=== PATIENT | female | born 1995 | race Two or more races ===

== ENCOUNTER 2019-05-05 07:41 | Emergency (ER) | payer OTHER ==
[~2019-05-05] VITALS: Ht 154.9 cm; Wt 96.2 kg
[2019-05-05 08:28] LABS: Urine Bacteria NONE SEEN /hpf (None Seen); Urine Blood TRACE /uL (Negative); Urine Mucus FEW (None Seen); Urine Specific Gravity 1.026 (1.001-1.035); Urine WBC 4 /hpf (0 - 5)
[2019-05-05 09:39] VITALS: BP 114/71
[2019-05-05 10:33] LABS: Basophils # (auto) 0 uL; Basophils % (auto) 0.4 % (0.0-2.0); Eosinophils # (auto) 0.1 uL; Eosinophils % (auto) 0.8 % (0.0-7.0); Hematocrit 42.5 % (36.0-46.0); Hemoglobin 14.4 g/dL (12.2-16.2); Lymphocytes # (auto) 2.9 uL; Lymphocytes % (auto) 24.8 % (10.0-50.0); Mean Corpuscular Hemoglobin 30.3 pg (28.0-32.0); Mean Corpuscular Hgb Conc. 33.9 g/dL (32.0-36.0); Mean Corpuscular Volume 89.4 fL (80.0-100.0); Monocytes # (auto) 0.5 uL; Monocytes % (auto) 4.6 % (0.0-12.0); Neutrophils % (auto) 69.4 % (37.0-80.0); Nucleated Red Blood Cells % 0.1 %; Platelet Count (auto) 319 10^3/uL (140-450); Red Blood Cells 4.76 10^6/uL (4.0-5.20); Red Cell Distribution Width 13.9 % (11.8-14.3); White Blood Cell 11.5 10^3/uL (4.4-10.8)
== END 2019-05-05 10:50 | disposition home or self-care (01) ==
LOC: ER 07:41
DX: N39.0 Urinary tract infection, site not specified (principal); R51 Headache; R42 Dizziness and giddiness; F17.210 Nicotine dependence, cigarettes, uncomplicated
CPT/HCPCS: 36415; 81001; 81025; 82962; 85025; 93005

== ENCOUNTER 2020-03-25 14:29 | Emergency (ER) | payer OTHER ==
[~2020-03-25] VITALS: Ht 154.9 cm; Wt 97.5 kg
[2020-03-25 14:35] VITALS: BP 109/61
== END 2020-03-25 16:04 | disposition home or self-care (01) ==
LOC: ER 14:29
DX: S63.91XA Sprain of unspecified part of right wrist and hand, initial encounter (principal); H10.9 Unspecified conjunctivitis; W22.01XA Walked into wall, initial encounter; Y93.89 Activity, other specified; Y92.89 Other specified places as the place of occurrence of the external cause; Y99.8 Other external cause status
CPT/HCPCS: 73130

== ENCOUNTER 2021-10-12 09:05 | Emergency (ER) | payer OTHER ==
[~2021-10-12] VITALS: Ht 154.9 cm; Wt 99.8 kg
[2021-10-12] MEDS ORDERED: KETOROLAC TROMETH 30 MG/ML 1ML VIAL IV ONE (09:30)
[2021-10-12] MEDS ORDERED: ONDANSETRON HCL 4 MG/2 ML VIAL IV ONE (09:30)
[2021-10-12 10:16] LABS: Basophils # (auto) 0.1 10 ^3/uL (0-0.2); Basophils % (auto) 0.6 % (0.0-2.0); Eosinophils # (auto) 0.1 10 ^3/uL (0-0.8); Eosinophils % (auto) 1.1 % (0.0-7.0); Hematocrit 38.9 % (36.0-46.0); Hemoglobin 13.3 g/dL (12.2-16.2); Lymphocytes # (auto) 2.8 10 ^3/uL (0.4-5.4); Mean Corpuscular Hemoglobin 30.8 pg (28.0-32.0); Mean Corpuscular Hgb Conc. 34.2 g/dL (32.0-36.0); Mean Corpuscular Volume 90.1 fL (80.0-100.0); Monocytes # (auto) 0.5 10 ^3/uL (0-1.3); Monocytes % (auto) 4.7 % (0.0-12.0); Neutrophils % (auto) 69.6 % (37.0-80.0); Red Blood Cells 4.32 10^6/uL (4.0-5.20); Red Cell Distribution Width 13.3 % (11.8-14.3); White Blood Cell 11.5 10^3/uL (4.4-10.8)
[2021-10-12 10:28] LABS: Albumin 3.3 g/dL (3.4-5.0); Calcium 8.4 mg/dL (8.5-10.1)
[2021-10-12 10:33] LABS: BUN/Creatinine Ratio 18.9; Bilirubin, Total 0.7 mg/dL (0.2-1.0)
[2021-10-12 12:14] LABS: Urine Bacteria NONE SEEN /hpf (None Seen); Urine Blood Negative /uL (Negative); Urine Mucus FEW (None Seen); Urine Specific Gravity 1.029 (1.001-1.035); Urine WBC 5 /hpf (0 - 5)
[2021-10-12 12:49] VITALS: BP 108/48
== END 2021-10-12 12:47 | disposition home or self-care (01) ==
LOC: ER 09:05
DX: R11.2 Nausea with vomiting, unspecified (principal); R10.30 Lower abdominal pain, unspecified; F17.210 Nicotine dependence, cigarettes, uncomplicated
CPT/HCPCS: 36415; 80053; 81001; 83690; 85025; 96374; 96375; 99284; J1885; J2405

== ENCOUNTER 2021-11-11 15:13 | Emergency (ER) | payer OTHER ==
[~2021-11-11] VITALS: Ht 154.9 cm; Wt 100.7 kg
[2021-11-11] MEDS ORDERED: PROMETHAZINE HCL 25 MG/ML 1ML IM ONE (16:00)
[2021-11-11] MEDS ORDERED: SODIUM CHLORIDE 0.9% 1,000 ML IV ONE (16:00)
[2021-11-11 16:39] LABS: Basophils # (auto) 0 10 ^3/uL (0-0.2); Basophils % (auto) 0.3 % (0.0-2.0); Eosinophils # (auto) 0.1 10 ^3/uL (0-0.8); Eosinophils % (auto) 0.5 % (0.0-7.0); Hematocrit 38.8 % (36.0-46.0); Lymphocytes # (auto) 2.3 10 ^3/uL (0.4-5.4); Lymphocytes % (auto) 19.4 % (10.0-50.0); Mean Corpuscular Hemoglobin 30.4 pg (28.0-32.0); Mean Corpuscular Hgb Conc. 33.5 g/dL (32.0-36.0); Mean Corpuscular Volume 90.6 fL (80.0-100.0); Monocytes # (auto) 0.5 10 ^3/uL (0-1.3); Monocytes % (auto) 4.2 % (0.0-12.0); Neutrophils % (auto) 75.6 % (37.0-80.0); Nucleated Red Blood Cells % 0.3 %; Red Blood Cells 4.28 10^6/uL (4.0-5.20); Red Cell Distribution Width 13.3 % (11.8-14.3); White Blood Cell 11.9 10^3/uL (4.4-10.8)
[2021-11-11 16:54] LABS: Albumin 3.1 g/dL (3.4-5.0); Calcium 8.7 mg/dL (8.5-10.1); Potassium 3.7 mmol/L (3.5-5.1)
[2021-11-11 16:57] LABS: BUN/Creatinine Ratio 15.2; Bilirubin, Total 0.5 mg/dL (0.2-1.0); Total Protein 7.2 g/dL (6.4-8.2)
[2021-11-11 23:20] VITALS: BP 110/78
== END 2021-11-11 23:20 | disposition home or self-care (01) ==
LOC: ER 15:27
DX: O21.0 Mild hyperemesis gravidarum (principal); Z3A.25 25 weeks gestation of pregnancy
CPT/HCPCS: 36415; 80053; 85025; 96360; 96361; 96372; 99283; J2550; J7030

== ENCOUNTER 2022-10-15 00:55 | Emergency (ER) | payer MEDICAID, OTHER ==
[~2022-10-15] VITALS: Ht 167.6 cm; Wt 80.0 kg
[2022-10-15 01:01] VITALS: BP 124/82
[2022-10-15 01:34] LABS: Basophils # (auto) 0.1 10 ^3/uL (0-0.2); Basophils % (auto) 0.6 % (0.0-2.0); Eosinophils # (auto) 0.1 10 ^3/uL (0-0.8); Eosinophils % (auto) 0.9 % (0.0-7.0); Hematocrit 40.1 % (36.0-46.0); Hemoglobin 13.9 g/dL (12.2-16.2); Lymphocytes # (auto) 3.9 10 ^3/uL (0.4-5.4); Lymphocytes % (auto) 26.4 % (10.0-50.0); Mean Corpuscular Hemoglobin 30.3 pg (28.0-32.0); Mean Corpuscular Hgb Conc. 34.6 g/dL (32.0-36.0); Mean Corpuscular Volume 87.6 fL (80.0-100.0); Monocytes # (auto) 0.7 10 ^3/uL (0-1.3); Monocytes % (auto) 4.5 % (0.0-12.0); Neutrophils # (auto) 10.1 10 ^3/uL (1.6-8.6); Neutrophils % (auto) 67.6 % (37.0-80.0); Red Blood Cells 4.58 10^6/uL (4.0-5.20); Red Cell Distribution Width 14.8 % (11.8-14.3); White Blood Cell 14.9 10^3/uL (4.4-10.8)
[2022-10-15] MEDS ORDERED: HYDROcodone-ACET 10/325MG TAB PO ONE (01:45)
[2022-10-15] MEDS ORDERED: SODIUM CHLORIDE 0.9% 1,000 ML IV ONE ×2 (02:00)
[2022-10-15 02:03] LABS: Albumin 3.7 g/dL (3.4-5.0); BUN/Creatinine Ratio 21.1; Calcium 8.9 mg/dL (8.5-10.1); Potassium 3.9 mmol/L (3.5-5.1)
[2022-10-15 02:06] LABS: Bilirubin, Total 0.5 mg/dL (0.2-1.0); Total Protein 7.7 g/dL (6.4-8.2)
== END 2022-10-15 03:46 | disposition left against medical advice (07) ==
LOC: ER 00:55 → EDBD 00:55 → ER 03:46
DX: R10.9 Unspecified abdominal pain (principal); F32.A Depression, unspecified; F17.210 Nicotine dependence, cigarettes, uncomplicated; R11.2 Nausea with vomiting, unspecified; R07.81 Pleurodynia
CPT/HCPCS: 36415; 80053; 83690; 84702; 85025

== ENCOUNTER 2023-01-21 19:06 | Emergency (ER) | payer MEDICAID ==
[~2023-01-21] VITALS: Ht 154.9 cm; Wt 216.0 kg
[2023-01-21 21:55] VITALS: BP 115/60
[2023-01-21] MEDS ORDERED: ACET-1158 PO (22:48)
[2023-01-21] MEDS ORDERED: AMOX-277 PO (22:48)
== END 2023-01-21 22:52 | disposition home or self-care (01) ==
LOC: ER 19:06
DX: L60.0 Ingrowing nail (principal); Z79.2 Long term (current) use of antibiotics; Z79.899 Other long term (current) drug therapy

== ENCOUNTER 2023-06-28 18:38 | Emergency (ER) | payer MEDICAID ==
[~2023-06-28] VITALS: Ht 154.9 cm; Wt 102.8 kg
[~2023-06-28 18:38] MED LIST: ACET500T58 PO; AMOX875T4 PO
[2023-06-28 20:11] LABS: Basophils # (auto) 0.1 10 ^3/uL (0-0.2); Basophils % (auto) 0.5 % (0.0-2.0); Eosinophils # (auto) 0.1 10 ^3/uL (0-0.8); Eosinophils % (auto) 1.1 % (0.0-7.0); Hematocrit 41.3 % (36.0-46.0); Hemoglobin 13.8 g/dL (12.2-16.2); Lymphocytes # (auto) 2.6 10 ^3/uL (0.4-5.4); Lymphocytes % (auto) 24.3 % (10.0-50.0); Mean Corpuscular Hemoglobin 29.5 pg (28.0-32.0); Mean Corpuscular Hgb Conc. 33.4 g/dL (32.0-36.0); Mean Corpuscular Volume 88.5 fL (80.0-100.0); Monocytes # (auto) 0.5 10 ^3/uL (0-1.3); Neutrophils # (auto) 7.5 10 ^3/uL (1.6-8.6); Neutrophils % (auto) 69.1 % (37.0-80.0); Red Blood Cells 4.66 10^6/uL (4.0-5.20); White Blood Cell 10.9 10^3/uL (4.4-10.8)
[2023-06-28 20:42] LABS: Alanine Aminotransferase 21 U/L (7-40); Albumin 4.1 g/dL (3.2-4.8); Alkaline Phosphatase 91 U/L (46-116); Anion Gap 5.3 (5-15); Aspartate Aminotransferase 8 U/L (13-40); BUN/Creatinine Ratio 14.9 (10.0-20.0); Blood Urea Nitrogen 10 mg/dL (9-23); Carbon Dioxide 26.7 mmol/L (20-30); Chloride 107 mmol/L (98-107); Glucose 99 mg/dL (74-106); Potassium 4.2 mmol/L (3.5-5.1); Sodium 139 mmol/L (136-145)
[2023-06-28 20:43] LABS: Bilirubin, Total 0.5 mg/dL (0.2-1.0); Total Protein 6.8 g/dL (5.7-8.2)
[2023-06-28 21:13] LABS: Urine Bacteria NONE SEEN /hpf (None Seen); Urine Blood 2+ /uL (Negative); Urine Clarity Clear (Clear); Urine Color Yellow (Yellow); Urine Protein, UAD Negative (Negative); Urine Specific Gravity 1.021 (1.001-1.035); Urine Urobilinogen Normal (Negative); Urine WBC 2 /hpf (0 - 5); Urine pH 6.5 (5.0-8.0)
[2023-06-28] MEDS ORDERED: ONDANSETRON HCL 4 MG/2 ML VIAL IV ONE (21:30)
[2023-06-28] MEDS ORDERED: MECLIZINE HCL 25 MG TAB PO ONE (21:30)
[2023-06-28] MEDS ORDERED: SODIUM CHLORIDE 0.9% 1,000 ML IV ONE (21:30)
[2023-06-28] MEDS ORDERED: ZOFR4T PO (21:33)
[2023-06-28] MEDS ORDERED: MECL25CH85 PO (21:33)
[2023-06-29 01:18] VITALS: BP 105/52; PULSE 76; RESP 16; TEMP 97.8; O2SAT 98
== END 2023-06-28 21:29 | disposition home or self-care (01) ==
LOC: ER 18:38
DX: N93.9 Abnormal uterine and vaginal bleeding, unspecified (principal); R42 Dizziness and giddiness; F41.9 Anxiety disorder, unspecified; F32.9 Major depressive disorder, single episode, unspecified
CPT/HCPCS: 36415; 70450; 76856; 80053; 81001; 81025; 84443; 84484; 85025; 93005